=== PATIENT | female | born 1945 | race Hispanic/Latino ===

== ENCOUNTER 2017-12-18 19:17 | Emergency (ER) | payer OTHER, SELFPAY ==
[2017-12-18] MEDS ORDERED: Clindamycin 150 MG CAP ONE (20:09)
[2017-12-18] MEDS ORDERED: Clindamycin 150 MG CAP PO SCH (20:15)
[2017-12-18] MEDS ORDERED: Insulin Regular 300 UNITS/3 ML VIAL ONE (20:27)
== END 2017-12-18 21:23 | disposition home or self-care (01) ==
LOC: ERS 19:17
DX: K04.7 Periapical abscess without sinus (principal); E10.9 Type 1 diabetes mellitus without complications; F17.210 Nicotine dependence, cigarettes, uncomplicated
CPT/HCPCS: 36416; 99284; J1815

== ENCOUNTER 2023-10-10 15:01 | Outpatient (CLI) | payer MEDICARE | END 2023-10-10 15:02 | disposition home or self-care (01) | LOC: BICMAMMO 15:01 | PROVIDERS: ATTEND Family Medicine | DX: Z13.820 Encounter for screening for osteoporosis (principal); M85.89 Other specified disorders of bone density and structure, multiple sites; Z78.0 Asymptomatic menopausal state | CPT/HCPCS: 77080 ==